=== PATIENT | female | born 1970 | race Two or more races ===

== ENCOUNTER → 2024-07-17 | Outpatient (CLI) | payer MEDICAID, SELFPAY ==
--- NOTE | 2024-07-17 09:15 | XR_ITS ---
Examination: Breast ultrasound, unilateral, right complete Date and time of exam: July 17, 2024 1010 hours INDICATIONS: Right breast pain beginning one month ago history left breast biopsy Technique: Real-time harp scale ultrasonographic imaging performed right breast including all 4 quadrants as well as nipple retroareolar and axillary region. Findings: No cystic or solid breast mass Right axillary lymph nodes, the largest 2.4 x 1.1 x 3.0 cm IMPRESSION: BI-RADS Category 2: Benign findings
--- NOTE | 2024-07-17 09:45 | XR_ITS ---
Examination: Diagnostic digital mammography, unilateral, right Computer aided detection 3-D breast Tomosynthesis, unilateral Date and time of exam: July 17, 2024 1021 hours Compared to mammograms dating to December 26, 2014 INDICATIONS: Right wrist pain beginning 6 months ago Technique: Nonmagnified MLO, CC views of the right breast have been obtained, reconstructed from 3-D Tomosynthesis images. R2 computer aided detection program utilized for evaluation of suspicious masses and/or abnormal calcifications. 3-D Tomosynthesis images obtained. Findings: Scattered areas of fibroglandular density. Benign calcifications. No suspicious masses Impression: BI-RADS category 2: Benign findings Return to yearly follow-up mammography
== END | disposition home or self-care (01) ==
LOC: CDIM 09:47
PROVIDERS: PCP Family Medicine; Referring Provider Nurse Practitioner Women's Health; Visit Provider Nurse Practitioner Women's Health
DX: R92.321 Mammographic fibroglandular density, right breast (principal); R92.1 Mammographic calcification found on diagnostic imaging of breast
CPT/HCPCS: 76641; 77061; 77065; G0279

== ENCOUNTER 2024-08-06 11:01 | Outpatient (RCR) | payer MEDICAID, SELFPAY ==
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
== END 2024-08-06 23:59 | disposition home or self-care (01) ==
LOC: CPTX 11:01
PROVIDERS: PCP Student in an Organized Health Care Education/Training Program; Referring Provider Student in an Organized Health Care Education/Training Program; Visit Provider Student in an Organized Health Care Education/Training Program
DX: M25.571 Pain in right ankle and joints of right foot (principal); R26.2 Difficulty in walking, not elsewhere classified; R26.89 Other abnormalities of gait and mobility; G89.29 Other chronic pain
CPT/HCPCS: 97162

== ENCOUNTER 2024-09-05 15:30 | Outpatient (RCR) | payer MEDICAID, SELFPAY ==
--- NOTE | 2024-08-13 16:09 | PT.ODAYNRPT ---
PT Outpatient Daily Note OP Daily Note Outpatient Physical Therapy Treatment Date: 08/13/24 Visit Reasons: RT foot pain/Ankle Subjective: Pt c/o 8/10 foot and ankle pain, for the most part pain level is consisitent. Objective: Please see flow sheet for ther exlist. Assessment: Difficult to find intervention with no pain due to high pain in the beginning of PT session. Plan: Continue with pOC. Length of Time (minutes) of Treatment: 30 Minutes Procedure Charges Therapeutic Exercise 30 minutes: Yes
--- NOTE | 2024-08-15 16:10 | PT.ODAYNRPT ---
PT Outpatient Daily Note OP Daily Note Outpatient Physical Therapy Treatment Date: 08/15/24 Visit Reasons: RT foot pain/Ankle Subjective: Pt reports foot was sore and painful after last session and still has some pain today. Objective: Please see flow sheet for ther ex list. Assessment: Regressed interventions to accommodate reported pain. Plan: Continue with POC. Assess response to treatment. Length of Time (minutes) of Treatment: 30 Minutes Procedure Charges Therapeutic Exercise 30 minutes: Yes
--- NOTE | 2024-08-22 16:31 | PT.ODAYNRPT ---
PT Outpatient Daily Note OP Daily Note Outpatient Physical Therapy Treatment Date: 08/22/24 Visit Reasons: RT foot pain/Ankle Subjective: Pt reports noticing some progress with ankle. Objective: Please see flow sheet for ther ex list. Assessment: Progression of interventions completed with minimal complaints. Plan: Continue with pOC. Length of Time (minutes) of Treatment: 30 Minutes Procedure Charges Therapeutic Exercise 30 minutes: Yes
--- NOTE | 2024-08-27 16:02 | PT.ODAYNRPT ---
PT Outpatient Daily Note OP Daily Note Outpatient Physical Therapy Treatment Date: 08/27/24 Visit Reasons: RT foot pain/Ankle Subjective: Pt's foot and ankle is better. Pt does not have any new concerns. Objective: Please see flow chart for list of ther ex performed Assessment: tolerate exercises performed; slight difficulty with gastroc stretch due to pain, however, able to complete instructed reps. Plan: Continue with PT Length of Time (minutes) of Treatment: 30 Minutes Procedure Charges Therapeutic Exercise 30 minutes: Yes
--- NOTE | 2024-08-30 15:31 | PT.ODAYNRPT ---
PT Outpatient Daily Note OP Daily Note Outpatient Physical Therapy Treatment Date: 08/30/24 Visit Reasons: RT foot pain/Ankle Subjective: Pt's foot and ankle is feeling better. Objective: Please see flow chart for list of ther ex performed Assessment: tolerate exercises with minimal pain and progressing with strengthening exercsies Plan: Continue with PT Length of Time (minutes) of Treatment: 30 Minutes Procedure Charges Therapeutic Exercise 30 minutes: Yes
--- NOTE | 2024-09-03 15:28 | PT.ODAYNRPT ---
PT Outpatient Daily Note OP Daily Note Outpatient Physical Therapy Treatment Date: 09/03/24 Visit Reasons: RT foot pain/Ankle Subjective: No new concerns or complaints. Objective: Please see flow sheet for ther ex list. Assessment: Progressing interventions as tolerated. Plan: Continue with poC. Length of Time (minutes) of Treatment: 30 Minutes Procedure Charges Therapeutic Exercise 30 minutes: Yes
--- NOTE | 2024-09-05 16:11 | PT.ODAYNRPT ---
PT Outpatient Daily Note OP Daily Note Outpatient Physical Therapy Treatment Date: 09/05/24 Visit Reasons: RT foot pain/Ankle Subjective: Pt reports R foot is doing better. Objective: Please see flow sheet for ther ex list. Assessment: Added interventions completed with good tolerance indicating progress. Plan: Continue with pOC. Length of Time (minutes) of Treatment: 30 Minutes Procedure Charges Therapeutic Exercise 30 minutes: Yes
== END 2024-09-06 23:59 | disposition home or self-care (01) ==
LOC: CPTX 15:30
PROVIDERS: PCP Otolaryngology; Referring Provider Otolaryngology; Visit Provider Otolaryngology
DX: M25.571 Pain in right ankle and joints of right foot (principal); R26.2 Difficulty in walking, not elsewhere classified; R26.89 Other abnormalities of gait and mobility; G89.29 Other chronic pain
CPT/HCPCS: 97110

== ENCOUNTER 2024-09-30 15:30 | Outpatient (RCR) | payer MEDICAID, SELFPAY ==
--- NOTE | 2024-09-12 16:35 | PT.ODAYNRPT ---
PT Outpatient Daily Note OP Daily Note Outpatient Physical Therapy Treatment Date: 09/12/24 Visit Reasons: RIGHT ANKLE FOOT PAIN Subjective: Pt reports R ankle is feeling better, pain is mild when present. Objective: Please see flow sheet for the venessa list. Assessment: Interventions completed with decrease pain allowing for intervention progression. Plan: Continue with POC. Length of Time (minutes) of Treatment: 30 Minutes Procedure Charges Therapeutic Exercise 30 minutes: Yes
--- NOTE | 2024-09-20 16:12 | PT.ODAYNRPT ---
PT Outpatient Daily Note OP Daily Note Outpatient Physical Therapy Treatment Date: 09/20/24 Visit Reasons: RIGHT ANKLE FOOT PAIN Subjective: Pt's foot and ankle is better. No new concerns to report. Objective: Please see flow chart for list of ther ex performed Assessment: tolerate exercises with minimal pain Plan: Continue with PT Length of Time (minutes) of Treatment: 30 Minutes Procedure Charges Therapeutic Exercise 30 minutes: Yes
--- NOTE | 2024-09-30 15:53 | PT.ODAYNRPT ---
PT Outpatient Daily Note OP Daily Note Outpatient Physical Therapy Treatment Date: 09/30/24 Visit Reasons: RIGHT ANKLE FOOT PAIN Subjective: Pt's foot is good and does not have any concerns to report. Objective: Please see flow chart for list of ther ex perfomed Assessment: tolerate exercises with minimal pain Plan: Continue with PT Length of Time (minutes) of Treatment: 30 Minutes Procedure Charges Therapeutic Exercise 30 minutes: Yes
== END 2024-10-04 23:59 | disposition home or self-care (01) ==
LOC: CPTX 15:30
PROVIDERS: PCP Student in an Organized Health Care Education/Training Program; Referring Provider Student in an Organized Health Care Education/Training Program; Visit Provider Student in an Organized Health Care Education/Training Program
DX: M25.571 Pain in right ankle and joints of right foot (principal); R26.2 Difficulty in walking, not elsewhere classified; R26.89 Other abnormalities of gait and mobility; G89.29 Other chronic pain
CPT/HCPCS: 97110

== ENCOUNTER 2024-10-07 19:27 | Emergency (ER) | payer MEDICAID, SELFPAY ==
[2024-10-07 19:28] VITALS: BMI 27.4
[2024-10-07 19:52] VITALS: BP 110/71; PULSE 68; RESP 18; TEMP 36.6; O2SAT 97
--- NOTE | 2024-10-07 20:12 | XR_ITS ---
Examination: Lumbar spine 3 views Technique: AP lateral coned lateral lower lumbar spine 3 views Exam date and time: October 07, 2024 2148 hrs. Indications: Onset lower back pain today. Findings: Adequate alignment lumbar vertebral bodies No lumbar fracture Advanced degenerative disc disease L5-S1 No spondylolisthesis Impression: Advanced degenerative disc disease L5-S1
--- NOTE | 2024-10-07 20:12 | XR_ITS ---
Examination: Cervical spine 3 views Technique one AP lateral coned AP odontoid cervical spine 3 views Exam date and time: October 07, 2024 2136 hrs. Indications: Neck pain onset today no injury Findings: Moderate to advanced degenerative disc disease C3-C4 Moderate degenerative disc disease C5-C6 Intact odontoid No cervical fracture Cervical thoracic levoscoliosis 10 degrees Impression: Degenerative disc disease C3-C4, C5-C6
--- NOTE | 2024-10-07 20:12 | EKG_ITS ---
[facility] Test Date: 2024-10-07 Pat Name: CARLA GUERRA Department: Room: - Gender: Female Cafeteria Attendant: : 1970 Requested By: Edgardo Callaway Order Number: [id number] Reading MD: Edgardo Callaway Measurements Intervals [place] Rate: 72 P: 71 WI: 176 QRS: 86 QRSD: 98 T: -5 QT: 391 QTc: 429 Interpretive Statements SINUS RHYTHM WITH OCCASIONAL VENTRICULAR PREMATURE COMPLEXES NONSPECIFIC ST & T-WAVE ABNORMALITY Compared to ECG 05/04/2022 10:24:10 Ventricular premature complex(es) now present Possible ischemia no longer present T-wave abnormality still present /store/S0/[id number]/ecg/[id number].pdf
--- NOTE | 2024-10-07 20:12 | XR_ITS ---
Examination: CT brain head without contrast. 2-D sagittal coronal reconstructions Date and time of exam:October 07, 20242021 hrs. Indications: Onset headaches dizziness weakness sepsis beginning 2 weeks ago CTDI: vol (mGy):45.6 DLP: (mGycm):872 Technique: Multiple CT axial sections of the brain have been obtained, 5 mm slice thickness. Contrast has not been administered. 2-D sagittal, coronal reconstructions have been obtained Low dose protocols were performed. One or more of the following dose reduction techniques were used; automated exposure control, adjustment of the mA and/or KV according to patient size, use of iterative reconstruction technique. Findings: No significant ventricular enlargement. Stable right frontal calcification, compared with February 14, 2022 Intra-axial or extra-axial hemorrhage density is not seen. No mass effect or midline shift Basal cisterns are not remarkable. Fourth ventricle is midline. Cranial vault intact. Impression: Negative for acute hemorrhage, mass effect or midline shift Brain MRI follow-up would best assess for demyelinating disease, acute ischemic change, as clinically warranted
--- NOTE | 2024-10-07 20:14 | PD.EDRME ---
Rapid Medical Screening Exam [facility] Arrival date/time: 10/07/24 19:27 54-year-old female with a barrage of symptoms including chest pain that radiates to the left shoulder and left side of face. Patient also complains of neck pain headache and facial numbness for several days Chief Complaint: Headache Time Seen by Provider: 10/07/24 19:40 Vital signs: Vital Signs Temperature 97.8 F 10/07/24 19:52 Pulse Rate 68 10/07/24 19:52 Respiratory Rate 18 10/07/24 19:52 Blood Pressure 110/71 10/07/24 19:52 Pulse Oximetry (%) 97 10/07/24 19:52 Oxygen Delivery Method Room Air 10/07/24 19:52
[2024-10-07 20:54] LABS: Basophils % (Auto) 0 % (0-2.5); Eosinophils # (Auto) 0.3 Thou/mm3 (0.0-0.5); Eosinophils % (Auto) 4 % (0-10); Hematocrit 39.1 % (36.0-46.0); Hemoglobin 13.3 g/dL (12.0-16.0); Immature Granulocytes % (Auto) 0 % (0-0); Immature Granulocytes Auto 0.01 Thou/mm3 (0.00-0.00); Lymphocytes # (Auto) 3.9 Thou/mm3 (1.0-4.8); Lymphocytes % (Auto) 49 % (10-50); Mean Corpuscular Hemoglobin 30.4 pg (25.0-35.0); Mean Corpuscular Volume 90 fL (80-100); Monocytes # (Auto) 0.6 Thou/mm3 (0.0-0.8); Monocytes % (Auto) 8 % (0-12); Neutrophils % (Auto) 39 % (37-80); Nucleated Red Blood Cell % 0 /100 WBC (0); Platelet Count 245 Thou/mm3 (140-440); RDW Standard Deviation 40.1 fL (36.4-46.3); Red Blood Count 4.37 Miln/mm3 (4.00-5.20); White Blood Count 7.8 Thou/mm3 (3.6-11.0)
[2024-10-07 21:14] LABS: HCG,Qualitative Serum Negative
[2024-10-07 21:19] LABS: Alanine Aminotransferase 17 U/L (10-49); Albumin, Serum 4.7 gm/dL (3.5-5.0); Albumin/Globulin Ratio 1.7 (1.2-2.2); Alkaline Phosphatase 80 U/L (46-116); Anion Gap 7 (7-16); Aspartate Amino Transferase 18 U/L (0-34); BUN/Creatinine Ratio 20 Ratio (12-20); Bilirubin,Total 0.5 mg/dL (0.3-1.2); Blood Urea Nitrogen 14 mg/dL (9-23); Calcium 9.7 mg/dL (8.3-10.6); Calcium (Corrected) 9.7 mg/dL (8.5-10.1); Carbon Dioxide 29.4 mMol/L (20.0-31.0); Chloride 105 mMol/L (98-107); Creatinine (Component) 0.7 mg/dL (0.6-1.3); Estimated Creatinine Clearance 96.3 mL/min (>60); Globulin 2.8 gm/dL (2.3-3.5); Glucose 96 mg/dL (74-106); Osmolality,Calculated 281 (275-295); Potassium 3.5 mMol/L (3.4-5.1); Sodium 141 mMol/L (136-145); Total Protein 7.5 gm/dL (5.7-8.2); Troponin I < 0.002 ng/mL (0.0-0.045); eGFR > 60 See Note
--- NOTE | 2024-10-08 01:02 | PD.EDHA ---
ED Headache RME/HPI General Chief Complaint: Headache Stated Complaint: HEADACHE/ NECK/BACK Time Seen by Provider: 10/07/24 19:40 Arrival date/time: 10/07/24 19:27 RME / HPI RME / HPI Narrative: 10/07/24 19:27 54-year-old female with a barrage of symptoms including chest pain that radiates to the left shoulder and left side of face. Patient also complains of neck pain headache and facial numbness for several days Dr. Diana?s Main ED Evaluation: 54yo female presents to the ED for a chief complaint of mid back burning discomfort that radiates up to her neck x 3 weeks. Patient states today she started having mid back pain that radiates up to her head, reporting it was significantly worse compared to her prior pain, so she came in for evaluation. She endorses having numbness to her bilateral face and bilateral hands. 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 Patient denies any rash, cough, runny nose or any other associated symptoms. No known allergies. Related Data Previous Rx's ?Medication ?Instructions ?Recorded ondansetron 4 mg disintegrating 4 mg PO Q8H #14 tabs 05/04/22 tablet IBU 800 mg tablet (ibuprofen) 800 mg PO Q6H PRN pain #30 tabs 12/18/22 baclofen 10 mg tablet 10 mg PO BID #20 tabs 12/18/22 acetaminophen 500 mg capsule 1,000 mg (2 x 500 mg) PO Q6H PRN 10/08/24 pain #40 caps ibuprofen 600 mg tablet 600 mg PO Q6H PRN pain 5 days #20 10/08/24 tabs Allergies Allergy/AdvReac Type Severity Reaction Status Date / Time No Known Allergies Allergy Verified 05/04/22 10:04 Review of Systems Review of Systems Systems Reviewed: All systems reviewed, normal except as documented Past Medical History Past Medical History NEUROLOGIC: Negative Neurological Disorders or Seizures CARDIAC: Negative Cardiac Disorders or Congestive Heart Failure RESPIRATORY: Positive Pneumonia; Negative Chronic Obstructive Pulmonary Disease (COPD) or Asthma GASTROINTESTINAL: Positive Gastrointestinal Disorders and Hemorrhoids GENITOURINARY: Negative Genitourinary Disorders or Renal Disease MUSCULOSKELETAL: Negative Musculoskeletal Disorders ENDOCRINE: Negative Endocrine Disorders, Diabetes Mellitus Type 1 or Diabetes Mellitus Type 2 HEMATOLOGIC: Positive Anemia; Negative Blood Disorders or Sickle Cell Disease PSYCHO/SOCIAL: Positive Depression OTHER HISTORY: Positive Hospitalization; Negative Autoimmune Disease, Blood Transfusions or Anesthesia Reactions Surgical History SURGICAL: Positive Abdominal Surgery Social History SMOKING STATUS: Never smoker SUBSTANCE USE: does not use ED Exam Narrative Physical exam: GENERAL APPEARANCE: alert and oriented x 4, well-developed, well-nourished, no acute distress VITALS: All vitals were reviewed and the pulse ox is 97% on room air, which is normal according to my interpretation. HEENT: Normocephalic, atraumatic; pupils equal, round, reactive to light; EOMI; mucous membranes pink, moist; oropharynx clear NECK: Supple LUNGS: CTABL; no wheezes, no rales, no rhonchi HEART: Regular rate, regular rhythm; normal S1, S2; no murmurs ABDOMEN: non distended; normal BS; soft, no tenderness, no guarding, no rebound; no masses, no organomegaly, no hernia BACK: no CVA tenderness EXTREMITIES: atraumatic; no edema NEUROLOGIC: awake; alert and oriented x4; cranial nerves II-XII grossly intact; no focal sensory or motor deficits PSYCHIATRIC: appropriate mood and affect SKIN: warm, dry, normal color; no rashes Course Quality Measures none Orders Category Date Time Status EKG (ED ONLY) *Do not use* NOW Care 10/07/24 20:[address] head/brain wo con Stat Exams 10/07/24 20:12 Completed EKG (ED Only) Stat Exams 10/07/24 20:12 Draft XR cervical spine 2-3V Stat Exams 10/07/24 20:12 Completed XR lumbar spine 2-3V Stat Exams 10/07/24 20:12 Completed CBC Stat Lab 10/07/24 20:36 Completed CMP [Comprehensive Metabolic Panel] Stat Lab 10/07/24 20:36 Completed HCG,Qualitative Serum Stat Lab 10/07/24 20:36 Completed Troponin I Stat Lab 10/07/24 20:36 Completed Acetaminophen Tab [Tylenol ES Tab] Med 10/08/24 01:02 Discontinued 1,000 mg PO X1 ONE Ketorolac Inj [Toradol Inj] Med 10/08/24 01:02 Discontinued 30 mg IM X1 ONE Vital Signs Vital signs: Vital Signs Temperature 97.8 F 10/07/24 19:52 Pulse Rate 68 10/07/24 19:52 Respiratory Rate 18 10/07/24 19:52 Blood Pressure 110/71 10/07/24 19:52 Pulse Oximetry (%) 97 10/07/24 19:52 Oxygen Delivery Method Room Air 10/07/24 19:52 Headache MDM Narrative MDM Narrative:: Scribe Attestation: 10/08/24 - Molly Estrada am scribing for and in the presence of Dr. Diana. Patient data External records reviewed:: [facility] previous records (Per chart review, patient has no relevant previous ED visits.) Clinical information provided by:: patient Social determinants that could affect healthcare access:: none Patient has the following chronic illnesses:: none How is presenting disease/condition affected by chronic disease/condition?: no chronic disease Evaluation data The following diagnostics were reviewed and interpreted by me:: lab results, radiology exam(s) and EKG tracing(s) Lab and/or radiology exams considered but not ordered:: none Interpretation Summary: CBC is normal, CMP is normal, Troponin is normal, HCG is negative, according to my interpretation. EKG done at 2032, NSR, rate of 72, occasional PVCs, right axis deviation, nonspecific ST abnormalities, no STEMI, according to my interpretation. -------- [facility] Report Signed Patient: CARLA GUERRA Record#: [id number] Birthdate: 1970 Age/Sex: 54 / F Location: [facility] Attending Dr: Ordering Physician: Edgardo Callaway PA-C Date of Service: 10/07/24 Procedure(s): XR cervical spine 2-3V Accession Number(s): [id number] cc: Mauricio Biswas MD; NO PRIMARY/FAMILY,PHYSICIAN; Edgardo Callaway PA-C~ Examination: Cervical spine 3 views Technique one AP lateral coned AP odontoid cervical spine 3 views Exam date and time: October 07, 2024 2136 hrs. Indications: Neck pain onset today no injury Findings: Moderate to advanced degenerative disc disease C3-C4 Moderate degenerative disc disease C5-C6 Intact odontoid No cervical fracture Cervical thoracic levoscoliosis 10 degrees Impression: Degenerative disc disease C3-C4, C5-C6 Dictated By: Mauricio Biswas MD Signed By: <Electronically signed by Mauricio Biswas MD in OV> 10/07/246 [facility] Report Signed Patient: CARLA GUERRA. Record#: [id number] Birthdate: 1970 Age/Sex: 54 / F Location: [facility] Attending Dr: Ordering Physician: Edgardo Callaway PA-C Date of Service: 10/07/24 Procedure(s): XR lumbar spine 2-3V Accession Number(s): [id number] cc: Mauricio Biswas MD; NO PRIMARY/FAMILY,PHYSICIAN; Edgardo Callaway PA-C~ Examination: Lumbar spine 3 views Technique: AP lateral coned lateral lower lumbar spine 3 views Exam date and time: October 07, 2024 2148 hrs. Indications: Onset lower back pain today. Findings: Adequate alignment lumbar vertebral bodies No lumbar fracture Advanced degenerative disc disease L5-S1 No spondylolisthesis Impression: Advanced degenerative disc disease L5-S1 Dictated By: Mauricio Biswas MD Signed By: <Electronically signed by Mauricio Biswas MD in OV> 10/07/242216 [facility] Report Signed Patient: CARLA GUERRA. Record#: [id number] Birthdate: 1970 Age/Sex: 54 / F Location: [facility] Attending Dr: Ordering Physician: Edgardo Callaway PA-C Date of Service: 10/07/24 Procedure(s): CT head/brain wo con Accession Number(s): [id number] cc: Mauricio Biswas MD; NO PRIMARY/FAMILY,PHYSICIAN; Edgardo Callaway PA-C~ Examination: CT brain head without contrast. 2-D sagittal coronal reconstructions Date and time of exam:October 07, 2024 2022 hrs. Indications: Onset headaches dizziness weakness sepsis beginning 2 weeks ago CTDI: vol (mGy):45.6 DLP: (mGycm):872 Technique: Multiple CT axial sections of the brain have been obtained, 5 mm slice thickness. Contrast has not been administered. 2-D sagittal, coronal reconstructions have been obtained Low dose protocols were performed. One or more of the following dose reduction techniques were used; automated exposure control, adjustment of the mA and/or KV according to patient size, use of iterative reconstruction technique. Findings: No significant ventricular enlargement. Stable right frontal calcification, compared with February 14, 2022 Intra-axial or extra-axial hemorrhage density is not seen. No mass effect or midline shift Basal cisterns are not remarkable. Fourth ventricle is midline. Cranial vault intact. Impression: Negative for acute hemorrhage, mass effect or midline shift Brain MRI follow-up would best assess for demyelinating disease, acute ischemic change, as clinically warranted Dictated By: Mauricio Biswas MD Signed By: <Electronically signed by Mauricio Biswas MD in OV> 10/07/24 2136 Medications / Prescriptions Medications or Prescriptions considered but not ordered:: none Medication administrations:: Medication Administration History Discontinued Medications Acetaminophen (Acetaminophen 500 Mg Tablet) 1,000 mg PO X1 ONE Stop: 10/08/24 01:03 Ketorolac Tromethamine (Ketorolac Inj 60 Mg/2 Ml Vial) 30 mg IM X1 ONE Stop: 10/08/24 01:03 see above Consultations Consultation(s) initiated? (list below): No Diagnosis Differential diagnosis headache: tension headache and other (cluster headache, anxiety, viral illness) Most likely diagnosis given after review of the tests above:: see below Admission Indicated Admission indicated?: not indicated Explain why admission is indicated or not indicated:: Admission criteria not met. Admission Request Was there a request for admission?: No Disposition Plan Disposition Plan: Discharge Discharge Attestation Discharge Attestation: The patient and all family members were given an opportunity to ask questions and understood the discharge instructions. Discharge instructions specifically effects, indications for sooner follow up or return to the emergency department, and the expected course of current diagnosis. Patient condition: Stable Discharge Plan Plan Patient Disposition: HOME (Self Care) Disposition Comment: Stable for discharge Patient condition on transfer: Stable Prescriptions/Referrals Prescriptions/Med Rec: New acetaminophen 500 mg capsule 1,000 mg PO Q6H PRN (Reason: pain) Qty: 40 0RF ibuprofen 600 mg tablet 600 mg PO Q6H PRN (Reason: pain) 5 Days Qty: 20 0RF No Action ondansetron 4 mg tablet,disintegrating 4 mg PO Q8H Qty: 14 0RF ibuprofen [IBU] 800 mg tablet 800 mg PO Q6H PRN (Reason: pain) Qty: 30 0RF baclofen 10 mg tablet 10 mg PO BID Qty: 20 0RF Referrals: [facility] [[facility]] - In 1 week Problem List Clinical Impression: Headache Patient/Caregiver Discharge Instructions Discharge Activity: activity as tolerated Education Materials: Self-Care for Headaches Additional Instructions: Return to the emergency department for any worsening or any further medical problems. Otherwise you should follow-up with your primary care doctor or in the [facility] clinic within the next several days. There are 2 prescriptions waiting for you at your pharmacy. 1 is acetaminophen the other is ibuprofen. These are both for pain. You can take these at the same time up to every 6 hours. Print Language: Montene[place]in Stand Alone Forms: [employer] Award Info., Patient Portal Info Letter
[2024-10-08] MEDS: ACETAMINOPHEN 500 MG TABLET 1000 MG PO (01:16)
[2024-10-08] MEDS: KETOROLAC INJ 60 MG/2 ML VIAL 30 MG IM (01:16)
[2024-10-08 01:21] VITALS: BP 116/76; PULSE 72; RESP 16; TEMP 36.7; O2SAT 99
== END 2024-10-08 01:22 | disposition home or self-care (01) ==
PROVIDERS: Physician Assistant; Emergency Provider Emergency Medicine
DX: R51.9 Headache, unspecified (principal); M50.31 Other cervical disc degeneration, high cervical region; M51.379 Other intervertebral disc degeneration, lumbosacral region without mention of lumbar back pain or lower extremity pain
CPT/HCPCS: 36415; 70450; 72040; 72100; 80053; 84484; 84703; 85025; 93005; 96372; 99284; J1885; A9270

== ENCOUNTER 2024-10-15 15:34 | Outpatient (RCR) | payer MEDICAID, SELFPAY ==
--- NOTE | 2024-10-15 15:59 | PT.ODS1RPT ---
PT OP Progress/Discharge Note Date of Service: 10/15/24 Progress Note/DC Note Progress Note/Discharge Note: DC Note Patient Information Visit Reasons: right ankle/foot pain Medical Diagnosis: Right Ankle Pain Treatment Dx #1: Right Ankle Pain Service Continue Service or Discharge: Discharge Discharge Date: 10/15/24 Status Subjective: Pt's ankle is better. Pt has been able to walk, stand, perform chores, and ADLs with minimal limitation. At this time Pt feels comfortable being release from care with exercises to continue at home. Objective: Right Ankle AROM: all motions are WNL Right Ankle MMTs: grossly 4/5 Right Hip MMTs: grossly 4-/5 Assessment: Pt demonstrate functional right ankle mobility and strength allowing her to resume ADLs with minimal limitation. At this time Pt will no longer benefit from physical therapy due to plateau towards goals. Pt was instructed on HEP last session and educated to continue exercises to maintian overall mobility. Pt performed all exercises safely, thank you for your referrals. Plan: D/C home with HEP and follow up with provider PRN Procedure Charges Therapeutic Exercise 30 minutes: Yes
== END 2024-11-04 23:59 | disposition home or self-care (01) ==
LOC: CPTX 15:34
PROVIDERS: PCP Otolaryngology; Referring Provider Otolaryngology; Visit Provider Otolaryngology
DX: M25.571 Pain in right ankle and joints of right foot (principal); R26.2 Difficulty in walking, not elsewhere classified; R26.89 Other abnormalities of gait and mobility; G89.29 Other chronic pain
CPT/HCPCS: 97110

== ENCOUNTER 2025-07-01 18:42 | Emergency (ER) | payer MEDICAID, SELFPAY ==
[2025-07-01 20:25] VITALS: BP 136/83; PULSE 70; RESP 16; TEMP 36.6; O2SAT 98; BMI 31.6
--- NOTE | 2025-07-01 20:50 | PD.EDSKIN ---
ED Skin Abcess FB-RME/HPI General Chief complaint: Skin/Abscess/Foreign Body Stated complaint: LEFT FACE PAIN Time Seen by Provider: 07/01/25 20:44 Arrival date/time: 07/01/25 18:42 55F with no significant PMH presents to ED with 1.5 month of L face skin growth with intermittent pain. PCP gave her some cream that did not help. Limitations: no limitations Related Data Previous Rx's ?Medication ?Instructions ?Recorded ondansetron 4 mg disintegrating 4 mg PO Q8H #14 tabs 05/04/22 tablet IBU 800 mg tablet (ibuprofen) 800 mg PO Q6H PRN pain #30 tabs 12/18/22 baclofen 10 mg tablet 10 mg PO BID #20 tabs 12/18/22 acetaminophen 500 mg capsule 1,000 mg (2 x 500 mg) PO Q6H PRN 10/08/24 pain #40 caps Allergies Allergy/AdvReac Type Severity Reaction Status Date / Time No Known Allergies Allergy Verified 05/04/22 10:04 Review of Systems Review of Systems Systems Reviewed: All systems reviewed, normal except as documented Integumentary/Breasts Skin/Breast: Reports as per HPI and Reports other (skin growth) Past Medical History Past Medical History NEUROLOGIC: Negative Neurological Disorders or Seizures CARDIAC: Negative Cardiac Disorders or Congestive Heart Failure RESPIRATORY: Positive Pneumonia; Negative Chronic Obstructive Pulmonary Disease (COPD) or Asthma GASTROINTESTINAL: Positive Gastrointestinal Disorders and Hemorrhoids GENITOURINARY: Negative Genitourinary Disorders or Renal Disease MUSCULOSKELETAL: Negative Musculoskeletal Disorders ENDOCRINE: Negative Endocrine Disorders, Diabetes Mellitus Type 1 or Diabetes Mellitus Type 2 HEMATOLOGIC: Positive Anemia; Negative Blood Disorders or Sickle Cell Disease PSYCHO/SOCIAL: Positive Depression OTHER HISTORY: Positive Hospitalization; Negative Autoimmune Disease, Blood Transfusions or Anesthesia Reactions Surgical History SURGICAL: Positive Abdominal Surgery Social History SMOKING STATUS: Never smoker SUBSTANCE USE: does not use ED Exam General Limitations: Present no limitations General appearance: Present alert and in no apparent distress Head Head exam: Present atraumatic ENT ENT exam: Present normal oropharynx, mucous membranes moist and other (L anterior ear skin growth 1 cm in size) Neck Neck exam: Present normal inspection, full ROM and trachea midline Chest Chest inspection: Present normal inspection and symmetric chest wall rise Neurological Exam Neurological exam: Present alert and oriented X3 Psychiatric Psychiatric exam: Present normal affect and normal mood Skin Skin exam: Present warm, dry, intact and normal color Course Quality Measures none Vital Signs Vital signs: Vital Signs Temperature 97.8 F 07/01/25 20:25 Pulse Rate 70 07/01/25 20:25 Respiratory Rate 16 07/01/25 20:25 Blood Pressure 136/83 H 07/01/25 20:25 Pulse Oximetry (%) 98 07/01/25 20:25 Oxygen Delivery Method Room Air 07/01/25 20:25 O2 at 98% on RA and WNLs Skin / Abscess / Foreign Body MDM Narrative MDM Narrative:: 55F with no significant PMH presents to ED with 1.5 month of L face skin growth with intermittent pain. PCP gave her some cream that did not help. Physical exam reveals 1 cm skin growth near L anterior ear. No obvious redness or tenderness. L ear exam normal. Patient is afebrile, calm, and alert. [employer] given, including to see derm for possible biopsy. Patient data External records reviewed:: [facility] previous records Clinical information provided by:: patient Social determinants that could affect healthcare access:: none Patient has the following chronic illnesses:: none How is presenting disease/condition affected by chronic disease/condition?: no chronic disease Evaluation data The following diagnostics were reviewed and interpreted by me:: other (specify) (none) Lab and/or radiology exams considered but not ordered:: not ordered Interpretation Summary: n/a Medications / Prescriptions Medications or Prescriptions considered but not ordered:: not ordered Medication administrations:: n/a Consultations Consultation(s) initiated? (list below): No Diagnosis Skin/Abscess Differential Diagnosis: abscess of skin or subcutaneous tissue, viral exanthem, dermatophytosis, urticaria, herpes zoster, allergic reaction to drug, cellulitis, eczema, insect bites, impetigo, contact dermatitis and other (skin growth) Most likely diagnosis given after review of the tests above:: skin growth Admission Indicated Admission indicated?: not indicated Admission Request Was there a request for admission?: No Disposition Plan Disposition Plan: Discharge Discharge Attestation Discharge Attestation: The patient and all family members were given an opportunity to ask questions and understood the discharge instructions. Discharge instructions specifically effects, indications for sooner follow up or return to the emergency department, and the expected course of current diagnosis. Patient condition: Stable Discharge Plan Plan Patient Disposition: HOME (Self Care) Discharge Disposition comment: Stable Prescriptions/Referrals Prescriptions/Med Rec: No Action ondansetron 4 mg tablet,disintegrating 4 mg PO Q8H Qty: 14 0RF ibuprofen [IBU] 800 mg tablet 800 mg PO Q6H PRN (Reason: pain) Qty: 30 0RF baclofen 10 mg tablet 10 mg PO BID Qty: 20 0RF acetaminophen 500 mg capsule 1,000 mg PO Q6H PRN (Reason: pain) Qty: 40 0RF Problem List Clinical Impression: Skin growth Patient/Caregiver Discharge Instructions Additional Instructions: Please follow-up with PCP within 24-48 hours and return immediately if symptoms worsen. See PCP for referral to derm for possible biopsy. Print Language: Syrian Stand Alone Forms: Patient Portal Info Letter PA/FLOWER GROWER Supervising Physician SANJUANA/OLINDA Supervising Physician: Dr. Apple
== END 2025-07-01 20:49 | disposition home or self-care (01) ==
PROVIDERS: Emergency Provider Emergency Medicine
DX: D49.2 Neoplasm of unspecified behavior of bone, soft tissue, and skin (principal)
CPT/HCPCS: 99281

== ENCOUNTER 2025-07-29 07:00 | Day surgery (SDC) | payer MEDICAID, SELFPAY ==
[2025-07-28 15:05] VITALS: BMI 27.4
[2025-07-29] VITALS (8 sets, daily range): BP systolic 114–188; BP diastolic 66–82; PULSE 64–88; RESP 11–20; TEMP 36.3–36.7; O2SAT 95–100; BMI 29.2
[2025-07-29] MEDS: SODIUM CHLORIDE 0.9% 500 ML 500 ML 125 ML IV (07:56)
[2025-07-29] MEDS: MIDAZOLAM INJ 1 MG/ML VIAL 2 ML (ASD USE ONLY) 2 MG IVP (08:00)
[2025-07-29] MEDS: fentaNYL CIT INJ 50 mCg/ML AMP 2ML (ASD USE ONLY) IVP (08:00)
== END 2025-07-29 08:48 | disposition home or self-care (01) ==
PROVIDERS: PCP Family Medicine; Referring Provider Surgery; Visit Provider Surgery
PROC: 0DBE8ZX Excision of Large Intestine, Via Natural or Artificial Opening Endoscopic, Diagnostic (ICD-10-PCS; CPT 45380; principal; 2025-07-29 09:00)
DX: K62.5 Hemorrhage of anus and rectum (principal); K64.1 Second degree hemorrhoids; K64.4 Residual hemorrhoidal skin tags; K56.49 Other impaction of intestine
CPT/HCPCS: 45378; A4649; J1200; J2250; J3010; J7999